=== PATIENT | male | born 1995 | race Caucasian/White ===

== ENCOUNTER 2018-03-17 18:00 | Emergency (ER) | payer OTHER ==
[~2018-03-17] VITALS: Ht 182.9 cm; Wt 104.3 kg
--- NOTE | 2018-03-17 21:17 | EKG ---
[facility] [address] [place] [address] Signed Normal sinus rhythm Normal ECG No previous ECGs available Confirmed by AMERICA ROMERO MD ([id number]) on 03/17/2018 9:17:18 PM Electronically Signed By: AMERICA ROMERO MD 03/17/18 [id number] PATIENT NAME: SERA JOAQUIN Electrocardiogram DATE OF : [birth year] PHYSICIAN: AMERICA ROMERO MD REPORT #: [id number] REPORT IS CONFIDENTIAL AND NOT TO BE RELEASED WITHOUT AUTHORIZATION
== END 2018-03-17 19:52 | disposition home or self-care (01) ==
LOC: ED 18:00
DX: R07.89 Other chest pain (principal); F17.200 Nicotine dependence, unspecified, uncomplicated; Z88.5 Allergy status to narcotic agent
CPT/HCPCS: 36415; 71045; 80053; 84484; 85025; 93005; 93010; 99285

== ENCOUNTER 2018-07-29 10:38 | Emergency (ER) | payer OTHER ==
[~2018-07-29] VITALS: Ht 182.9 cm; Wt 109.5 kg
[2018-07-29] MEDS ORDERED: KEFLEX500 MG PO (12:29)
[2018-07-29] MEDS ORDERED: NORCO 5-325 TA1 EACH PO (12:29)
== END 2018-07-29 12:31 | disposition home or self-care (01) ==
LOC: ED 10:38
PROC: 0XQWXZZ Repair Left Little Finger, External Approach (ICD-10-PCS; principal; 2018-07-29)
DX: S67.197A Crushing injury of left little finger, initial encounter (principal); S62.617B Displaced fracture of proximal phalanx of left little finger, initial encounter for open fracture; S61.217A Laceration without foreign body of left little finger without damage to nail, initial encounter; F17.200 Nicotine dependence, unspecified, uncomplicated; Z88.5 Allergy status to narcotic agent; Z88.0 Allergy status to penicillin; W23.0XXA Caught, crushed, jammed, or pinched between moving objects, initial encounter; Z23 Encounter for immunization
CPT/HCPCS: 12001; 73130; 80053; 85025; 85610; 90471; 90715; 99283-25; J0690